=== PATIENT | female | born 1990 | race Caucasian/White ===

== ENCOUNTER 2017-08-22 14:16 | Outpatient (CLI) | END 2017-08-22 19:55 | disposition home or self-care (01) ==

== ENCOUNTER 2017-08-23 13:07 | Outpatient (CLI) | END 2017-08-23 15:34 | disposition home or self-care (01) ==

== ENCOUNTER 2017-10-11 00:10 | Inpatient (IN) | END 2017-10-15 13:10 | disposition home or self-care (01) | DRG 775 ==